=== PATIENT | female | born 2000 | race Caucasian/White ===

== ENCOUNTER 2019-08-09 14:42 | Emergency (ER) | payer OTHER ==
[~2019-08-09] VITALS: Ht 149.9 cm; Wt 77.1 kg
[2019-08-09] MEDS ORDERED: PRENA1 TRUE CO1 EACH (14:56)
== END 2019-08-09 17:50 | disposition home or self-care (01) ==
LOC: ER 14:42
DX: O20.0 Threatened abortion (principal)

== ENCOUNTER 2019-09-10 01:56 | Day surgery (SDC) | payer OTHER ==
[~2019-09-10] VITALS: Ht 149.9 cm; Wt 77.1 kg
[~2019-09-10 01:56] MED LIST: PRENA1 TRUE CO1 EACH
== END 2019-09-11 13:12 | disposition home or self-care (01) ==
LOC: ER 01:56 → CIR.AMB 10:18
PROVIDERS: ATTEND Obstetrics & Gynecology
DX: O03.4 Incomplete spontaneous abortion without complication (principal)

== ENCOUNTER 2020-07-20 21:09 | Emergency (ER) | payer OTHER ==
[~2020-07-20] VITALS: Ht 152.4 cm; Wt 61.2 kg
== END 2020-07-21 03:00 | disposition home or self-care (01) ==
LOC: ER 21:09
DX: O26.891 Other specified pregnancy related conditions, first trimester (principal); R10.2 Pelvic and perineal pain; Z34.01 Encounter for supervision of normal first pregnancy, first trimester

== ENCOUNTER 2020-10-08 15:06 | Emergency (ER) | payer OTHER ==
[~2020-10-08] VITALS: Ht 149.9 cm; Wt 80.3 kg
[2020-10-08] MEDS ORDERED: DUI500 PO (22:38)
== END 2020-10-08 22:49 ==
LOC: ER 15:06
DX: O26.892 Other specified pregnancy related conditions, second trimester (principal); R10.2 Pelvic and perineal pain; Z3A.19 19 weeks gestation of pregnancy

== ENCOUNTER 2020-11-21 09:48 | Outpatient (CLI) | payer OTHER ==
[~2020-11-21 09:48] MED LIST changes: +DUI500 PO
== END 2020-11-21 10:38 | disposition home or self-care (01) ==
LOC: PRENATAL 09:48
PROVIDERS: ATTEND Obstetrics & Gynecology Maternal & Fetal Medicine
DX: O35.0XX1 Maternal care for (suspected) central nervous system malformation in fetus, fetus 1 (principal); O35.3XX1 Maternal care for (suspected) damage to fetus from viral disease in mother, fetus 1; O98.512 Other viral diseases complicating pregnancy, second trimester; O99.891 Other specified diseases and conditions complicating pregnancy; O99.212 Obesity complicating pregnancy, second trimester; Z36.89 Encounter for other specified antenatal screening; Z3A.25 25 weeks gestation of pregnancy

== ENCOUNTER 2020-12-15 19:53 | Outpatient (CLI) | payer OTHER | END 2020-12-16 00:35 | disposition home or self-care (01) | LOC: OBS/DEL 19:53 | PROVIDERS: ATTEND Obstetrics & Gynecology | DX: O26.893 Other specified pregnancy related conditions, third trimester (principal); R10.2 Pelvic and perineal pain; Z3A.28 28 weeks gestation of pregnancy ==

== ENCOUNTER 2021-01-14 17:42 | Outpatient (CLI) | payer OTHER | END 2021-01-15 19:36 | disposition left against medical advice (07) | LOC: OBS/DEL 17:42 | PROVIDERS: ATTEND Obstetrics & Gynecology | DX: O26.843 Uterine size-date discrepancy, third trimester (principal); O60.03 Preterm labor without delivery, third trimester; O26.893 Other specified pregnancy related conditions, third trimester; R10.2 Pelvic and perineal pain; Z3A.32 32 weeks gestation of pregnancy ==

== ENCOUNTER 2021-01-21 15:30 | Inpatient (IN) | payer OTHER ==
[~2021-01-21] VITALS: Ht 149.9 cm; Wt 86.6 kg
== END 2021-01-26 17:28 | disposition home or self-care (01) | DRG 833 ==
LOC: LDR 15:30 → OB/GYN 15:30 → SURH 23:07 → LDR 23:52 → OB/GYN 01-22 12:54
PROVIDERS: ADMIT Obstetrics & Gynecology; ATTEND Obstetrics & Gynecology
PROC: 4A1HXFZ Monitoring of Products of Conception, Cardiac Rhythm, External Approach (ICD-10-PCS; principal; 2021-01-22)
PROC: BY4FZZZ Ultrasonography of Third Trimester, Single Fetus (ICD-10-PCS; 2021-01-22)
DX: O47.03 False labor before 37 completed weeks of gestation, third trimester (principal); Z3A.33 33 weeks gestation of pregnancy

== ENCOUNTER 2021-02-13 21:18 | Inpatient (IN) | payer OTHER ==
[~2021-02-13] VITALS: Ht 149.9 cm; Wt 88.5 kg
[2021-02-13] MEDS ORDERED: PRENATAL TABLE1 EAC1 PO (21:53)
== END 2021-02-17 12:13 | disposition home or self-care (01) | DRG 786 ==
LOC: LDR 21:18 → OB/GYN 21:18
PROVIDERS: ADMIT Obstetrics & Gynecology; ATTEND Obstetrics & Gynecology
PROC: 4A1HXFZ Monitoring of Products of Conception, Cardiac Rhythm, External Approach (ICD-10-PCS; 2021-02-14)
PROC: 10D00Z1 Extraction of Products of Conception, Low, Open Approach (ICD-10-PCS; principal; 2021-02-14 02:45)
DX: O42.013 Preterm premature rupture of membranes, onset of labor within 24 hours of rupture, third trimester (principal); O60.14X0 Preterm labor third trimester with preterm delivery third trimester, not applicable or unspecified; O77.0 Labor and delivery complicated by meconium in amniotic fluid; Z53.29 Procedure and treatment not carried out because of patient's decision for other reasons; Z3A.36 36 weeks gestation of pregnancy; Z37.0 Single live birth

== ENCOUNTER → 2022-03-30 | Emergency (ER) | payer OTHER ==
[~2022-03-30] VITALS: Ht 149.9 cm; Wt 84.4 kg
[~2022-03-30] MED LIST changes: +PRENATAL TABLE1 EAC1 PO
== END | disposition left against medical advice (07) ==
LOC: ER 17:59
DX: Z53.21 Procedure and treatment not carried out due to patient leaving prior to being seen by health care provider (principal)

== ENCOUNTER 2022-05-28 13:56 | Emergency (ER) | payer OTHER ==
[~2022-05-28] VITALS: Ht 149.9 cm; Wt 88.9 kg
== END 2022-05-28 17:35 | disposition home or self-care (01) ==
LOC: ER 13:56
DX: H10.31 Unspecified acute conjunctivitis, right eye (principal)

== ENCOUNTER 2022-07-14 12:06 | Emergency (ER) | payer OTHER ==
[~2022-07-14] VITALS: Ht 149.9 cm; Wt 87.5 kg
== END 2022-07-14 16:20 | disposition home or self-care (01) ==
LOC: ER 12:06
DX: S80.01XA Contusion of right knee, initial encounter (principal); S90.31XA Contusion of right foot, initial encounter; W18.30XA Fall on same level, unspecified, initial encounter; Y93.9 Activity, unspecified; Y92.018 Other place in single-family (private) house as the place of occurrence of the external cause; Y99.9 Unspecified external cause status

== ENCOUNTER → 2022-07-22 | Emergency (ER) | payer OTHER ==
[~2022-07-22] VITALS: Ht 149.9 cm; Wt 87.5 kg
== END | disposition left against medical advice (07) ==
LOC: ER 21:32
DX: Z53.21 Procedure and treatment not carried out due to patient leaving prior to being seen by health care provider (principal)

== ENCOUNTER 2023-01-10 21:19 | Emergency (ER) | payer OTHER ==
[~2023-01-10] VITALS: Ht 149.9 cm; Wt 90.3 kg
== END 2023-01-11 04:48 | disposition home or self-care (01) ==
LOC: ER 21:20
DX: K52.9 Noninfective gastroenteritis and colitis, unspecified (principal)

== ENCOUNTER 2023-02-26 13:13 | Emergency (ER) | payer OTHER ==
[~2023-02-26] VITALS: Ht 149.9 cm; Wt 88.9 kg
[2023-02-26 14:21] LABS: HEMATOCRIT 43.1 % (36.0-45.00); HEMOGLOBIN 15.1 g/dL (12.0-15.00); MEAN CORPUSCULAR HEMOGLOBIN 29.8 pg (27.00-32.0); PLATELET COUNT 314 K/uL (150-450); RED BLOOD COUNT 5.07 M/uL (4.00-6.00); RED CELL DISTRIBUTION WIDTH 13.4 % (11.5-14.5)
[2023-02-26 14:27] LABS: URINE APPEARANCE Cloudy; URINE BILIRRUBIN Negative (NEGATIVE); URINE BLOOD Small; URINE COLOR Yellow; URINE GLUCOSE Negative (NEGATIVE); URINE LEUKOCYTE Moderate; URINE NITRATE Negative; URINE PROTEIN Trace (NEGATIVE); URINE UROBILINOGEN 0.2 E.U./dl
[2023-02-26 14:31] LABS: URINE BACTERIA 3176.4 uL (0.0-1933); URINE EPITHELIAL CELLS 82.8 uL (0.0-38.8); URINE RBC 44.4 uL (0.0-20.8); URINE WBC 405.5 uL (0.0-23.2)
[2023-02-26] MEDS ORDERED: DUI500 PO (15:14)
[2023-02-26] MEDS ORDERED: PYRIDIUM100 M1 PO (15:14)
== END 2023-02-26 18:01 | disposition home or self-care (01) ==
LOC: ER 13:14
PROVIDERS: General Practice
DX: N39.0 Urinary tract infection, site not specified (principal); R30.0 Dysuria

== ENCOUNTER → 2023-02-28 | Emergency (ER) | payer OTHER ==
[~2023-02-28] VITALS: Ht 149.9 cm; Wt 88.9 kg
[~2023-02-28] MED LIST changes: +PYRIDIUM100 M1 PO
== END | disposition left against medical advice (07) ==
LOC: ER 03:04
DX: Z53.21 Procedure and treatment not carried out due to patient leaving prior to being seen by health care provider (principal)

== ENCOUNTER 2023-04-28 09:06 | Emergency (ER) | payer OTHER ==
[~2023-04-28] VITALS: Ht 149.9 cm; Wt 85.3 kg
[2023-04-28] MEDS ORDERED: 0.9 % SODIUM CHLORIDE 1,000 ML IV STA (09:47)
[2023-04-28] MEDS ORDERED: ONDANSETRON HCL 2 MG/ML VIAL IV STA (09:47)
[2023-04-28 11:20] LABS: HEMATOCRIT 45.6 % (36.0-45.00); HEMOGLOBIN 16.2 g/dL (12.0-15.00); MEAN CELL VOLUME 84.7 fL (80.00-100.00); MEAN CORPUSCULAR HGB CONC 35.5 g/dl (32.0-36.0); PLATELET COUNT 260 K/uL (150-450); RED BLOOD COUNT 5.38 M/uL (4.00-6.00); RED CELL DISTRIBUTION WIDTH 13.2 % (11.5-14.5)
[2023-04-28 11:34] LABS: PH,URINE 6.5 (5.0-8.0); URINE APPEARANCE Cloudy; URINE BILIRRUBIN Negative (NEGATIVE); URINE BLOOD Negative; URINE COLOR Yellow; URINE GLUCOSE Negative (NEGATIVE); URINE LEUKOCYTE Negative; URINE NITRATE Negative; URINE PROTEIN 30 (NEGATIVE)
[2023-04-28 11:36] LABS: URINE BACTERIA 1591.1 uL (0.0-1933); URINE RBC 19.1 uL (0.0-20.8); URINE WBC 4.6 uL (0.0-23.2)
[2023-04-28 11:39] LABS: CALCIUM 9.4 mg/dL (8.5-10.1); CREATININE SERUM 0.68 mg/dL (0.55-1.02); GFR 105.42; POTASSIUM 3.87 mEq/L (3.5-5.1)
[2023-04-28] MEDS ORDERED: ACETAMINOPHEN 500 MG GEL..CAP PO ONE (12:00)
[2023-04-28] MEDS ORDERED: KETOROLAC TROMETHAMINE 30 MG VIAL IV ONE (13:15)
== END 2023-04-28 15:49 | disposition home or self-care (01) ==
LOC: ER 09:06
PROVIDERS: Emergency Medicine
DX: K52.89 Other specified noninfective gastroenteritis and colitis (principal); R11.10 Vomiting, unspecified; Z20.822 Contact with and (suspected) exposure to COVID-19

== ENCOUNTER 2023-05-01 13:02 | Emergency (ER) | payer OTHER ==
[~2023-05-01] VITALS: Ht 149.9 cm; Wt 84.4 kg
[2023-05-01] MEDS ORDERED: 0.9 % SODIUM CHLORIDE 1,000 ML IV STA (15:31)
[2023-05-01] MEDS ORDERED: ONDANSETRON HCL 2 MG/ML VIAL IV STA (15:32)
[2023-05-01] MEDS ORDERED: FAMOtidine 10 MG/ML (4ML VIAL) IV STA (15:32)
[2023-05-01 16:22] LABS: PH,URINE 6.5 (5.0-8.0); URINE APPEARANCE Clear; URINE BILIRRUBIN Negative (NEGATIVE); URINE BLOOD Trace; URINE COLOR Yellow; URINE GLUCOSE Negative (NEGATIVE); URINE LEUKOCYTE Negative; URINE NITRATE Negative; URINE UROBILINOGEN 0.2 E.U./dl
[2023-05-01 16:25] LABS: URINE EPITHELIAL CELLS 10.9 uL (0.0-38.8); URINE WBC 1.8 uL (0.0-23.2)
[2023-05-01 16:26] LABS: HEMOGLOBIN 16.1 g/dL (12.0-15.00); MEAN CELL VOLUME 83.4 fL (80.00-100.00); MEAN CORPUSCULAR HEMOGLOBIN 29.8 pg (27.00-32.0); MEAN CORPUSCULAR HGB CONC 35.8 g/dl (32.0-36.0); RED CELL DISTRIBUTION WIDTH 13.3 % (11.5-14.5)
[2023-05-01 16:31] LABS: ALBUMIN 3.7 gm/dL (3.4-5.0); BILIRUBIN TOTAL 0.55 mg/dL (0.3-1.2); BILIRUBIN,CONJUGATED 0.17 mg/dL (0.0-0.2); BILIRUBIN,UNCONJUGATED 0.38 mg/dL (0.0-0.6); CALCIUM 8.5 mg/dL (8.5-10.1); CREATININE SERUM 0.7 mg/dL (0.55-1.02); GFR 101.95; POTASSIUM 3.46 mEq/L (3.5-5.1); TOTAL PROTEIN 6.9 gm/dL (6.4-8.2)
[2023-05-01 16:36] LABS: URINE PROTEIN 100 (NEGATIVE)
[2023-05-01 17:05] LABS: PLATELET COUNT 97 K/uL (150-450)
[2023-05-01] MEDS ORDERED: ZOFRAN8 MG PO (18:24)
[2023-05-01] MEDS ORDERED: PEPCID20 MG PO (18:24)
== END 2023-05-01 18:36 | disposition home or self-care (01) ==
LOC: ER 13:03
PROVIDERS: General Practice
DX: K52.89 Other specified noninfective gastroenteritis and colitis (principal); E86.0 Dehydration; A90 Dengue fever [classical dengue]

== ENCOUNTER 2024-06-28 14:43 | Emergency (ER) | payer OTHER ==
[~2024-06-28] VITALS: Ht 149.9 cm; Wt 87.1 kg
[~2024-06-28 14:43] MED LIST changes: +PEPCID20 MG PO; +ZOFRAN8 MG PO
[2024-06-28 15:00] VITALS: BP 110/68; O2SAT 100
[2024-06-28] MEDS ORDERED: KETOROLAC TROMETHAMINE 30 MG VIAL IV ONE (16:15)
[2024-06-28] MEDS ORDERED: KETOROLAC TROMETHAMINE 30 MG VIAL ONE (16:38)
[2024-06-28 17:02] LABS: HEMATOCRIT 41.6 % (36.0-45.00); HEMOGLOBIN 14.5 g/dL (12.0-15.00); MEAN CORPUSCULAR HEMOGLOBIN 29.9 pg (27.00-32.0); MEAN CORPUSCULAR HGB CONC 34.8 g/dl (32.0-36.0); PLATELET COUNT 343 K/uL (150-450); RED BLOOD COUNT 4.84 M/uL (4.00-6.00); RED CELL DISTRIBUTION WIDTH 12.7 % (11.5-14.5)
[2024-06-28 17:11] LABS: URINE APPEARANCE Clear; URINE BACTERIA 1491.8 uL (0.0-1933); URINE BILIRRUBIN Negative (NEGATIVE); URINE BLOOD Negative; URINE COLOR Yellow; URINE EPITHELIAL CELLS 19.7 uL (0.0-38.8); URINE GLUCOSE Negative (NEGATIVE); URINE KETONE Negative (NEGATIVE); URINE LEUKOCYTE Negative; URINE NITRATE Negative; URINE PROTEIN Negative (NEGATIVE); URINE RBC 17.9 uL (0.0-20.8); URINE UROBILINOGEN 0.2 E.U./dl; URINE WBC 3.4 uL (0.0-23.2)
[2024-06-28 17:14] LABS: URINE CAST 0.14 uL (0.0-1.40)
[2024-06-28 17:43] LABS: ALBUMIN 3.7 gm/dL (3.4-5.0); BILIRUBIN TOTAL 0.29 mg/dL (0.3-1.2); CALCIUM 9.2 mg/dL (8.5-10.1); CREATININE SERUM 0.59 mg/dL (0.55-1.02); GFR 123.21; GLOBULINA 3.6 G/DL (2.4-3.5); POTASSIUM 4.1 mEq/L (3.5-5.1); TOTAL PROTEIN 7.3 gm/dL (6.4-8.2)
[2024-06-28] MEDS ORDERED: DICLOFENAC SODI75 MG PO (19:27)
== END 2024-06-28 19:32 | disposition home or self-care (01) ==
LOC: ER 14:43
PROVIDERS: General Practice
DX: R10.2 Pelvic and perineal pain (principal); N83.01 Follicular cyst of right ovary